=== PATIENT | male | born 1955 | race Caucasian/White ===

== ENCOUNTER 2021-01-21 16:58 | Observation (INO) | payer OTHER ==
[~2021-01-21] VITALS: Ht 177.8 cm; Wt 114.3 kg
[~2021-01-21 16:58] MED LIST: CARV25; LEXAPRO; METF500; MULVITA; VALS80
[2021-01-21] MEDS ORDERED: CLOP75 PO ×2 (17:20→19:30)
[2021-01-21] MEDS ORDERED: AMLO5 PO ×2 (17:20→19:30)
[2021-01-21] MEDS ORDERED: GLIP5 PO ×2 (17:21→19:31)
[2021-01-21] MEDS ORDERED: LISI20 PO (17:21)
[2021-01-21] MEDS ORDERED: LOVA40 PO ×2 (17:22→19:32)
[2021-01-21 17:48] LABS: BASOPHILS ABSOLUTE AUTO 0.03 K/mm3 (0.00-0.23); BASOPHILS PERCENT AUTO 1 % (0-2); EOSINOPHILS ABSOLUTE AUTO 0.13 K/mm3 (0.00-0.68); EOSINOPHILS PERCENT AUTO 2 % (0-6); Hematocrit 40.3 % (37.0-53.0); Hemoglobin 13.9 g/dL (13.5-17.5); IMMATURE GRAN ABSOLUTE AUTO 0.02 K/mm3 (0.00-0.10); IMMATURE GRAN PERCENT AUTO 0 % (0-1); LYMPHOCYTES ABSOLUTE AUTO 1.29 K/mm3 (0.84-5.20); LYMPHOCYTES PERCENT AUTO 20 % (21-46); MONOCYTES ABSOLUTE AUTO 0.44 K/mm3 (0.16-1.47); MONOCYTES PERCENT AUTO 7 % (4-13); Mean Corpuscular HGB 31.3 pg (26.0-34.0); Mean Corpuscular HGB Conc 34.5 g/dL (31.5-36.5); Mean Corpuscular Volume 91 fL (80-100); Mean Platelet Volume 10.2 fL (9.1-12.4); NEUTROPHILS ABSOLUTE AUTO 4.41 K/mm3 (1.96-9.15); NEUTROPHILS PERCENT AUTO 70 % (41-73); Platelet Count 152 K/mm3 (150-400); RDW Coefficient Variation 12.7 % (11.7-14.2); RDW Standard Deviation 41.2 fL (35.1-46.3); Red Blood Cell Count 4.44 M/mm3 (4.30-5.90); White Blood Cell Count 6.32 K/mm3 (4.00-11.30)
[2021-01-21 18:31] LABS: Albumin, Blood 3.1 g/dL (3.4-5.0); Albumin/Globulin Ratio 0.9 (0.8-1.8); Bilirubin, Total 0.4 mg/dL (0.1-1.0); Bun/Creatinine Ratio 15.1 (12.0-20.0); Calcium, Blood 8.8 mg/dL (8.5-10.1); Creatinine, Blood 1.26 mg/dL (0.60-1.20); Globulin, Blood 3.4 g/dL (2.2-4.0); Total Protein, Blood 6.5 g/dL (6.4-8.2)
[2021-01-21] MEDS ORDERED: CARV25 PO (19:30)
[2021-01-21] MEDS ORDERED: ESCI10 PO (19:31)
[2021-01-21] MEDS ORDERED: ZESTRIL40 M1 PO (19:31)
[2021-01-21] MEDS ORDERED: GLUCOPHAGE1000 M1 PO (19:32)
[2021-01-21] MEDS ORDERED: TAMS.4ER PO (19:32)
[2021-01-21] MEDS ORDERED: ASPI81CH PO (21:17)
[2021-01-21 21:23] LABS: SARS-Cov-2 (COVID-19) PCR, MMC NEGATIVE (NEGATIVE)
[2021-01-21 22:44] LABS: Source, Urine Clean Catch
[2021-01-21 22:51] LABS: Appearance, Urine Clear (Clear); Bilirubin, Urine Neg (Neg); Blood, Urine Neg (Neg); Color, Urine Yellow (P-Yellow); Glucose Qualitative, Urine 3+ (Neg); Ketones, Urine 1+ (Neg); Leukocyte Esterase, Urine Neg (Neg); Nitrite, Urine Neg (Neg); Protein, Urine 2+ (Neg); Specific Gravity, Urine 1.025 (1.003-1.022); Urobilinogen, Urine 1+ (Normal)
[2021-01-21 23:07] LABS: Bacteria Not Seen /hpf; Calcium Oxalate Crystals Many /hpf; Red Blood Cells, Urine Not Seen /hpf (0-2); Squamous Epithelial Cells Not Seen /hpf (Few); White Blood Cells, Urine Not Seen /hpf (0-5)
[2021-01-22 04:55] LABS: BASOPHILS ABSOLUTE AUTO 0.02 K/mm3 (0.00-0.23); BASOPHILS PERCENT AUTO 0 % (0-2); EOSINOPHILS ABSOLUTE AUTO 0.14 K/mm3 (0.00-0.68); EOSINOPHILS PERCENT AUTO 2 % (0-6); Hematocrit 39.4 % (37.0-53.0); Hemoglobin 13.9 g/dL (13.5-17.5); IMMATURE GRAN ABSOLUTE AUTO 0.02 K/mm3 (0.00-0.10); IMMATURE GRAN PERCENT AUTO 0 % (0-1); LYMPHOCYTES ABSOLUTE AUTO 1.61 K/mm3 (0.84-5.20); LYMPHOCYTES PERCENT AUTO 22 % (21-46); MONOCYTES ABSOLUTE AUTO 0.63 K/mm3 (0.16-1.47); MONOCYTES PERCENT AUTO 9 % (4-13); Mean Corpuscular HGB 32.2 pg (26.0-34.0); Mean Corpuscular HGB Conc 35.3 g/dL (31.5-36.5); Mean Corpuscular Volume 91 fL (80-100); Mean Platelet Volume 10.4 fL (9.1-12.4); NEUTROPHILS ABSOLUTE AUTO 4.76 K/mm3 (1.96-9.15); NEUTROPHILS PERCENT AUTO 66 % (41-73); Platelet Count 143 K/mm3 (150-400); RDW Coefficient Variation 12.7 % (11.7-14.2); RDW Standard Deviation 41.9 fL (35.1-46.3); Red Blood Cell Count 4.32 M/mm3 (4.30-5.90); White Blood Cell Count 7.18 K/mm3 (4.00-11.30)
[2021-01-22 05:16] LABS: Alanine Aminotransfer (ALT/SGP 23 U/L (12-78); Albumin, Blood 3.2 g/dL (3.4-5.0); Albumin/Globulin Ratio 1.1 (0.8-1.8); Alk Phos 68 U/L (50-136); Anion Gap 4 mmol/L (6-16); Aspartate Aminotrans (AST/SGOT 12 U/L (12-37); Bilirubin, Total 0.5 mg/dL (0.1-1.0); Blood Urea Nitrogen 16 mg/dL (8-24); Bun/Creatinine Ratio 14.4 (12.0-20.0); CO2, Blood 27 mmol/L (21-32); Calcium, Blood 8.4 mg/dL (8.5-10.1); Chloride, Blood 111 mmol/L (98-108); Creatinine, Blood 1.11 mg/dL (0.60-1.20); Glomerular Filtration Rate >60 (60-); Glucose, Blood 134 mg/dL (70-99); Potassium, Blood 3.7 mmol/L (3.5-5.5); Sodium, Blood 142 mmol/L (136-145); Total Protein, Blood 6.2 g/dL (6.4-8.2)
--- NOTE | 2021-01-22 05:18 | NUR ---
SHIFT SUMMARY- PT. NEW ADMISSION FROM ED, R/O NEW CVA. A&OX4, AMBULATORY W/SBA. PT. HAS SLURRED SPEECH, NO OTHER DEFICITS NOTED. BP ELEVATED LAST NIGHT. MEDICATED WITH HYDRALAZINE PER ORDER WITH GOOD IMPROVEMENT. PT. SCHEDULED FOR MRI THIS AM, SCREENING FORM COMPLETED AND FAXED. HAD NO COMPLAINTS DURING THE NIGHT. SLEPT T/O THE NIGHT, NO APPARENT DISTRESS NOTED. IV FLUIDS INFUSING. CALL LIGHT WITHIN REACH AND SIDE RAILS UPX2. WILL CONT TO MONITOR.
--- NOTE | 2021-01-22 10:14 | NUR ---
SPEECH THERAPY Henna.Rahul from Dr. Galloway for speech eval and treat
--- NOTE | 2021-01-22 15:31 | NUR ---
Discharge Summary A/Ox4, pleasant and cooperative. Calls for assistance with ambulation and other needs. Discharging to home, reviewed d/c papers with patient, no questions at this time. Copy given. SBA while patient dressed self. Belongings returned. Will be escorted by [employer]LE[employer] PROFESSIONAL via w/c once transport arrives.
== END 2021-01-22 15:52 | disposition home or self-care (01) ==
LOC: ER 16:58 → MEDS 16:59 → ENPENDDIS 01-22 15:52 → MEDS 01-22 15:52
PROVIDERS: Emergency Medicine; ADMIT Internal Medicine
DX: I63.81 Other cerebral infarction due to occlusion or stenosis of small artery (principal); R47.81 Slurred speech; R51.9 Headache, unspecified; I10 Essential (primary) hypertension; E78.5 Hyperlipidemia, unspecified; E11.9 Type 2 diabetes mellitus without complications; I25.10 Atherosclerotic heart disease of native coronary artery without angina pectoris; F39 Unspecified mood [affective] disorder; N40.0 Benign prostatic hyperplasia without lower urinary tract symptoms; Z88.5 Allergy status to narcotic agent; Z79.84 Long term (current) use of oral hypoglycemic drugs; Z20.822 Contact with and (suspected) exposure to COVID-19
CPT/HCPCS: 36415; 70450; 70551; 80053; 81001; 82947; 85025; 92523; 93005; 93010; 93306; 93880; 96374; 96375; 97110; 97161; 97166; 97530; 99285-25; A9270; J0360; J1650; J2060; J2765; J7030; U0004

== ENCOUNTER 2021-01-23 01:04 | Inpatient (IN) | payer OTHER ==
[~2021-01-23] VITALS: Ht 172.7 cm; Wt 112.6 kg
[~2021-01-23 01:04] MED LIST changes: +AMLO5 PO; +ASPI81CH PO; +CARV25 PO; +CLOP75 PO; +ESCI10 PO; +GLIP5 PO; +GLUCOPHAGE1000 M1 PO; +LISI20 PO; +LOVA40 PO; +TAMS.4ER PO; +ZESTRIL40 M1 PO
[2021-01-23 01:32] LABS: BASOPHILS ABSOLUTE AUTO 0.04 K/mm3 (0.00-0.23); BASOPHILS PERCENT AUTO 1 % (0-2); EOSINOPHILS ABSOLUTE AUTO 0.14 K/mm3 (0.00-0.68); EOSINOPHILS PERCENT AUTO 2 % (0-6); Hemoglobin 14.3 g/dL (13.5-17.5); IMMATURE GRAN ABSOLUTE AUTO 0.02 K/mm3 (0.00-0.10); IMMATURE GRAN PERCENT AUTO 0 % (0-1); LYMPHOCYTES PERCENT AUTO 22 % (21-46); MONOCYTES ABSOLUTE AUTO 0.61 K/mm3 (0.16-1.47); MONOCYTES PERCENT AUTO 9 % (4-13); Mean Corpuscular HGB 32.3 pg (26.0-34.0); Mean Corpuscular HGB Conc 35.8 g/dL (31.5-36.5); Mean Corpuscular Volume 90 fL (80-100); Mean Platelet Volume 10.1 fL (9.1-12.4); NEUTROPHILS ABSOLUTE AUTO 4.77 K/mm3 (1.96-9.15); NEUTROPHILS PERCENT AUTO 66 % (41-73); Platelet Count 151 K/mm3 (150-400); RDW Coefficient Variation 12.7 % (11.7-14.2); RDW Standard Deviation 41.5 fL (35.1-46.3); Red Blood Cell Count 4.43 M/mm3 (4.30-5.90); White Blood Cell Count 7.18 K/mm3 (4.00-11.30)
[2021-01-23 02:12] LABS: Alanine Aminotransfer (ALT/SGP 23 U/L (12-78); Albumin, Blood 3.5 g/dL (3.4-5.0); Albumin/Globulin Ratio 1.1 (0.8-1.8); Alk Phos 73 U/L (50-136); Anion Gap 7 mmol/L (6-16); Aspartate Aminotrans (AST/SGOT 8 U/L (12-37); Bilirubin, Total 0.6 mg/dL (0.1-1.0); Blood Urea Nitrogen 17 mg/dL (8-24); Bun/Creatinine Ratio 15.6 (12.0-20.0); CO2, Blood 24 mmol/L (21-32); Calcium, Blood 8.6 mg/dL (8.5-10.1); Chloride, Blood 108 mmol/L (98-108); Creatinine, Blood 1.09 mg/dL (0.60-1.20); Globulin, Blood 3.3 g/dL (2.2-4.0); Glomerular Filtration Rate >60 (60-); Glucose, Blood 159 mg/dL (70-99); Potassium, Blood 3.5 mmol/L (3.5-5.5); Sodium, Blood 139 mmol/L (136-145); Total Protein, Blood 6.8 g/dL (6.4-8.2)
--- NOTE | 2021-01-23 05:46 | NUR ---
SHIFT SUMMARY ADMITTED THIS SHIFT FROM ER FOR RT SIDED WEAKNESS. FULL CODE. PLAN IS FOR PT/OT/ST GRIFFINAL. TELEMETRY: SARA @ 57 BPM. IV FLUIDS INFUSING ORDERED. HE WILL DC HOME WITH [facility] WHEN STABLE. HE STATES DIFFICULTY USING HIS CANE TO AMBULATE DUE TO WORSENING RT SIDED WEAKNESS. RECENTLY DC'D FROM [facility] YESTERDAY. A&O X4. STATES NO PROBLEMS SWALLOWING
--- NOTE | 2021-01-23 08:13 | NUR ---
WAKES EASILY, MAKES NEEDS KNOWN, SPEECH SLURRED, TO HAVE A MRI TODAY, PATIENT REPORTS NOT HAVING MUCH POWER ANYMORE ON HIS WHOLE RIGHT SIDE, CSM+, MOVEMET PRESENT ON RIGHT SIDE
--- NOTE | 2021-01-23 18:32 | NUR ---
MAKES NEEDS KNOWN, CALL LIGHT WITH IN REACH, WORKED WITH PT TODAY, MRI DONE, NO RESULTS YET, REPORTED TO DR WHITTINGTON SBP 170S, RESTARTED LISINOPRIL, PATIENT TO STAY ANOTHER NIGHT, WAITING FOR APPRORIATE HOME EQUIPMENT SET UP, 13 STA[address] INTO HOUSE, LIVES WITH HIS , RIGHT SIDE WEAKNESS/DEFICIT, WCTM
--- NOTE | 2021-01-24 04:09 | NUR ---
SHIFT SUMMARY ADMITTED FOR RT SIDED WEAKNESS. HX OF RECENT STROKE/ADMISSION. FULL CODE. TELEMETRY: NSR @ 66 BPM. WE ARE ALLOWING PERMISSIVE HTN. I NOTE THAT THE MRI'S ARE UNREMARKABLE. PT USES A JALEESA-WALKER TO AMBULATE - BRP. HE WILL DC HOME WHEN HOME EQUIPMENT CAN BE PROCURED. PHYSICAL THERAPY/OT/ST ARE ASSISTING WITH CARE. PT HAD A HEADACHE THIS SHIFT, TYLENOL ADMINISTERED. PT STATES RT HAND USE IS "SLOWLY COMING BACK".
--- NOTE | 2021-01-24 10:18 | NUR ---
DR GONSALES ROUNDED, WAITING FOR PT TO ROUNDED TO ENSURE PATIENT HAS THE CORRECT HOME EQUIPMENT
[2021-01-24] MEDS ORDERED: ASPI325 PO (14:46)
[2021-01-24] MEDS ORDERED: ATOR80 (14:51)
== END 2021-01-24 16:24 | disposition home or self-care (01) | DRG 65 ==
LOC: ER 01:04 → MEDS 02:57
PROVIDERS: Student in an Organized Health Care Education/Training Program; ADMIT Internal Medicine
DX: I63.81 Other cerebral infarction due to occlusion or stenosis of small artery (principal); G81.91 Hemiplegia, unspecified affecting right dominant side; R47.1 Dysarthria and anarthria; R29.810 Facial weakness; K70.10 Alcoholic hepatitis without ascites; I10 Essential (primary) hypertension; E78.5 Hyperlipidemia, unspecified; E11.9 Type 2 diabetes mellitus without complications; R47.81 Slurred speech; F10.20 Alcohol dependence, uncomplicated; E66.9 Obesity, unspecified; I25.2 Old myocardial infarction; Z88.5 Allergy status to narcotic agent; Z79.02 Long term (current) use of antithrombotics/antiplatelets; Z79.82 Long term (current) use of aspirin; Z79.84 Long term (current) use of oral hypoglycemic drugs; Z79.899 Other long term (current) drug therapy
CPT/HCPCS: 70450; 70544; 70549; 80053; 82947; 85025; 92523; 93005; 93010; 97110; 97116; 97162; 97530; 99285-25; A9270; A9579; J1650; J7030

== ENCOUNTER 2021-04-30 12:03 | Emergency (ER) | payer OTHER ==
[~2021-04-30] VITALS: Ht 172.7 cm; Wt 113.4 kg
[~2021-04-30 12:03] MED LIST changes: +ASPI325 PO; +ATOR80 PO
[2021-04-30] MEDS ORDERED: CILO100 PO (12:45)
[2021-04-30] MEDS ORDERED: THERA-D2000 UNIT PO (12:45)
[2021-04-30 12:53] LABS: BASOPHILS ABSOLUTE AUTO 0.03 K/mm3 (0.00-0.23); BASOPHILS PERCENT AUTO 0 % (0-2); EOSINOPHILS PERCENT AUTO 0 % (0-6); Hematocrit 41.8 % (37.0-53.0); Hemoglobin 14.9 g/dL (13.5-17.5); IMMATURE GRAN ABSOLUTE AUTO 0.08 K/mm3 (0.00-0.10); IMMATURE GRAN PERCENT AUTO 1 % (0-1); LYMPHOCYTES ABSOLUTE AUTO 0.75 K/mm3 (0.84-5.20); LYMPHOCYTES PERCENT AUTO 8 % (21-46); MONOCYTES ABSOLUTE AUTO 0.21 K/mm3 (0.16-1.47); MONOCYTES PERCENT AUTO 2 % (4-13); Mean Corpuscular HGB 32.9 pg (26.0-34.0); Mean Corpuscular HGB Conc 35.6 g/dL (31.5-36.5); Mean Corpuscular Volume 92 fL (80-100); Mean Platelet Volume 10.3 fL (9.1-12.4); NEUTROPHILS ABSOLUTE AUTO 8.58 K/mm3 (1.96-9.15); NEUTROPHILS PERCENT AUTO 89 % (41-73); Platelet Count 180 K/mm3 (150-400); RDW Standard Deviation 42.9 fL (35.1-46.3); Red Blood Cell Count 4.53 M/mm3 (4.30-5.90); White Blood Cell Count 9.65 K/mm3 (4.00-11.30)
[2021-04-30 13:22] LABS: Alanine Aminotransfer (ALT/SGP 30 U/L (12-78); Albumin, Blood 3.9 g/dL (3.4-5.0); Albumin/Globulin Ratio 1.2 (0.8-1.8); Alk Phos 102 U/L (50-136); Anion Gap 13 mmol/L (6-16); Aspartate Aminotrans (AST/SGOT 16 U/L (12-37); Bilirubin, Total 0.9 mg/dL (0.1-1.0); Blood Urea Nitrogen 12 mg/dL (8-24); Bun/Creatinine Ratio 14.1 (12.0-20.0); CO2, Blood 20 mmol/L (21-32); Calcium, Blood 9.5 mg/dL (8.5-10.1); Chloride, Blood 106 mmol/L (98-108); Creatinine, Blood 0.85 mg/dL (0.60-1.20); Globulin, Blood 3.3 g/dL (2.2-4.0); Glomerular Filtration Rate >60 (60-); Glucose, Blood 291 mg/dL (70-99); Potassium, Blood 4.2 mmol/L (3.5-5.5); Sodium, Blood 139 mmol/L (136-145); Total Protein, Blood 7.2 g/dL (6.4-8.2); Troponin I <0.015 ng/mL (0.000-0.040)
[2021-04-30 13:35] LABS: Source, Urine Clean Catch
[2021-04-30 13:48] LABS: Appearance, Urine Clear (Clear); Bilirubin, Urine Neg (Neg); Blood, Urine 2+ (Neg); Color, Urine Yellow (P-Yellow); Glucose Qualitative, Urine 4+ (Neg); Ketones, Urine 4+ (Neg); Leukocyte Esterase, Urine Neg (Neg); Nitrite, Urine Neg (Neg); Protein, Urine 3+ (Neg); Urobilinogen, Urine NORM (Normal)
[2021-04-30 14:05] LABS: White Blood Cells, Urine Rare /hpf (0-5)
[2021-04-30 14:06] LABS: Bacteria Few /hpf; Red Blood Cells, Urine Rare /hpf (0-2); Squamous Epithelial Cells Rare /hpf (Few)
[2021-04-30] MEDS ORDERED: OXYACE7.5T PO (15:16)
[2021-04-30] MEDS ORDERED: ONDA4ODT MM (15:16)
== END 2021-04-30 15:40 | disposition home or self-care (01) ==
LOC: ER 12:03
PROVIDERS: Physician Assistant
DX: K86.2 Cyst of pancreas (principal); Z86.73 Personal history of transient ischemic attack (TIA), and cerebral infarction without residual deficits; Z79.84 Long term (current) use of oral hypoglycemic drugs; Z79.899 Other long term (current) drug therapy; Z79.82 Long term (current) use of aspirin; Z88.5 Allergy status to narcotic agent
CPT/HCPCS: 36415; 74177; 80053; 81001; 83690; 84484; 85025; 93005; 93010; 96374; 96375; 99285-25; J1170; J2270; J2405; J7030; Q9967

== ENCOUNTER 2022-04-20 06:09 | Day surgery (SDC) | payer OTHER ==
[~2022-04-20] VITALS: Ht 172.7 cm; Wt 105.9 kg
[~2022-04-20 06:09] MED LIST changes: +CILO100 PO; +METF500 PO; +ONDA4ODT MM; +OXYACE7.5T PO; +THERA-D2000 UNIT PO
--- NOTE | 2022-04-20 07:18 | NUR ---
Ambulatory in Day Surgery History, Chart, Medications and Allergies reviewed before start of procedure. Lungs clear anteriorly T/O to Auscultation. Pre-Op teaching done. Pt verbalizes understanding. Patient States Post-Procedure ride home has been arranged.
--- NOTE | 2022-04-20 11:10 | NUR ---
PT RESTING QUIETLY. WILL RESPOND AND FOLLOW COMMANDS IF WOKEN UP. VSS. 2L OXYGEN VIA NC IN PLACE. HE REPORTS NO PAIN OR NAUSEA. WILL CONTINUE TO MONITOR.
--- NOTE | 2022-04-20 11:49 | NUR ---
PT SLEEPING QUIETLY. WHEN AWAKE, REPORTING PAIN OF 8/10. SEE EMAR FOR PAIN MEDICATIONS. NO NAUSEA REPORTED. PT REPORTS NO BEING READY FOR ANYTHING TO EAT OR DRINK. VSS.
--- NOTE | 2022-04-20 14:22 | NUR ---
Patient up to Ambulate independently. Gait steady. ABLE TO USE RESTROOM. Discharge instructions reviewed with patient. Patient verbalizes understanding. Copy given to patient to take home. Dressing to procedure site clean, dry, intact with no visible drainage, swelling, erythema or bruising noted. Discharged via wheelchair to private car for ride home.
== END 2022-04-20 22:58 | disposition home or self-care (01) ==
LOC: ORSCMMR 06:09 → ORD 08:00 → ORSCMMR 08:00
PROVIDERS: Surgery
PROC: 0FT44ZZ Resection of Gallbladder, Percutaneous Endoscopic Approach (ICD-10-PCS; principal; 2022-04-20 08:00)
PROC: BF031ZZ Plain Radiography of Gallbladder and Bile Ducts using Low Osmolar Contrast (ICD-10-PCS; principal; 2022-04-20 08:00)
DX: K80.10 Calculus of gallbladder with chronic cholecystitis without obstruction (principal); K42.9 Umbilical hernia without obstruction or gangrene; I10 Essential (primary) hypertension; G47.33 Obstructive sleep apnea (adult) (pediatric); Z86.73 Personal history of transient ischemic attack (TIA), and cerebral infarction without residual deficits; F41.8 Other specified anxiety disorders; I25.2 Old myocardial infarction; E11.9 Type 2 diabetes mellitus without complications; Z79.84 Long term (current) use of oral hypoglycemic drugs; Z79.4 Long term (current) use of insulin; Z79.899 Other long term (current) drug therapy; E66.9 Obesity, unspecified; Z68.35 Body mass index [BMI] 35.0-35.9, adult
CPT/HCPCS: 74300; 82947; 88304; 93005; 93010; A9270; C1729; J0694; J2250; J2704; J2795; J3010; J7120